=== PATIENT | female | born 1985 | race Caucasian/White ===

== ENCOUNTER → 2018-03-23 | Outpatient (CLI) | payer BC ==
[~2018-03-23] MED LIST: IBUP800 PO; Slow Release I160 MG PO; Verotin-Gr Cap1 EACH PO
== END | disposition home or self-care (01) ==
LOC: LAB EV 09:39 → LAB SHORT 09:39
DX: L72.3 Sebaceous cyst (principal)
CPT/HCPCS: 87070; 87205